=== PATIENT | female | born 1975 | race African-American/Black ===

== ENCOUNTER 2017-11-14 12:35 | Emergency (ER) | payer SELFPAY ==
--- NOTE | 2017-11-14 12:40 | ED Physician Documentation ---
General Adult - HISTORIAN Historian: patient - HPI Stated Complaint: Dizziness since this am Chief Complaint: Dizziness Onset: hours (6) Timing: still present Severity: mild Further Comments: yes (she reports over the last few days she has had some sinus and allergy congestion (she has taken several different OTC Meds over the last few days) and she notes some dysuria. 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 Denies any N/ V. She does report more stools than normal and they are becoming more soft. 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 She denies fever. No blood in urine. No recent head injury . No chest pain.) Last known Well Code/Unknown Code: Unknown - ROS CONST: recent illness (allergy and sinus ) EYES/ENT: nasal drainage, nasal congestion. denies: problems with vision CVS/RESP: denies: chest pain, shortness of breath, cough (productive - dark color phglem ) GI/: problems urinating (burning with urination ), diarrhea (not diarrhea but more frequent and more loose than usual ). denies: vomiting, nausea MS/SKIN/LYMPH: none NEURO/PSYCH: dizziness. denies: headache, fainting, difficulty walking, difficulty with speech - PAST HX Past History: other Surgeries/Procedures: other Immunizations: UTD Allergies/Adverse Reactions: Allergies Allergy/AdvReac Type Severity Reaction Status Date / Time No Known Allergies Allergy Verified 11/14/17 13:22 Home Medications: Ambulatory Orders Medication Instructions Recorded NK [NK] 11/14/17 - SOCIAL HX Smoking History: cigarettes Alcohol Use: none Drug Use: none - FAMILY HX Family History: No - REVIEWED ASSESSMENTS Nursing Assessment Reviewed: Yes Vitals Reviewed: Yes Progress - Progress Progress: 1358: results discussed with patient as well as plan to finish fluids and get started on meds for UTI. She is agreeable DG ED Results Lab/Radiology - Radiology Radiology Impressions: Examination: CT head without contrast History: PT STATES SUDDEN ONSET OF DIZZINESS TODAY (Hx) Comparison exam: None available Technique: Noncontrast head CT protocol. Findings: Ventricles and sulci are appropriate for patient age. Cerebrocerebellar parenchyma demonstrates normal attenuation. No evidence for parenchymal hemorrhage. No evidence for mass or mass effect. No midline shift. No extra axial fluid collections. Partial visualization of the paranasal sinuses , mastoid air cells, orbits, skull and scalp without gross irregularity. Falx calcifications. Impression: No acute parenchymal process. No hemorrhage. Electronically signed on Nov 14, 2017 2:06:38 PM CDT by: Jacob Maldonado Examination: PA and lateral chest. History: Evaluate lung napier. PT STATES PRODUCTIVE COUGH X3 WEEKS FOLLOWED WITH CHEST PAIN. NO KNOWN HEART OR LUNG CONDITIONS. SMOKER (Hx) Comparison exam: None provided. Findings: PA lateral chest demonstrate a normal cardiac and mediastinal silhouette. No focal infiltrate. No blunting of the costophrenic margins. Osseous structures are appropriate for age. Impression: No acute pulmonary process. Electronically signed on Nov 14, 2017 2:07:25 PM CDT by: Jacob Maldonado General Adult Physical Exam - PHYSICAL EXAM GENERAL APPEARANCE: mild distress (crying due to fear per her report) EENT: eye inspection normal, pharynx normal, CARLENE, pharyngeal erythema (right ear ), abnormal TM NECK: normal inspection RESPIRATORY: no resp distress, chest non-tender, breath sounds normal CVS: reg rate & rhythm, heart sounds normal, equal pulses, no murmur ABDOMEN: soft, normal bowel sounds, no distension, non-tender SKIN: warm/dry, normal color EXTREMITIES: non-tender, normal range of motion, no evidence of injury, no edema NEURO: oriented X3, CN's nml as tested, motor nml, sensation nml, mood/affect nml, cognition normal Discharge Clincal Impression: UTI (urinary tract infection) Qualifiers: Urinary tract infection type: site unspecified Hematuria presence: without hematuria Qualified Code(s): N39.0 - Urinary tract infection, site not specified Referrals: Primary Doctor,No [REFERRING] - 2 Days Additional Instructions: 1. macrobid 100 mg take 1 by mouth twice per day x 10 days 2. Pyridium 100 mg take 1 by mouth three times a day x 3 days 3. Increase fluids - water 4. Frequent urination 5. Urinate after sex 6. Tylenol or Ibuprofen as needed for pain 7. See PCP in 10 days for follow up on urine 8. Return to ER for any concerns Condition: Stable Disposition: 01 HOME, SELF-CARE Decision to Admit: NO Date of Decison to Admit: 11/14/17 Decision Time: 15:30
[2017-11-14] MEDS ORDERED: 0.9 % SODIUM CHLORIDE 1,000 ML IV ONE (13:15)
[2017-11-14 13:22] LABS: BASOPHILS % 0.6 (0.0-1.5); MEAN CORPUSCULAR VOLUME 78.5 fl (80.0-100.0); NEUTROPHILS # 3.8 # k/uL (1.4-7.7)
[2017-11-14] MEDS ORDERED: 0.9 % SODIUM CHLORIDE 1,000 ML IV SCH (13:30)
[2017-11-14 13:31] LABS: CANNABINOIDS NON NEGATIVE ng/mL (< 50); METHYLENEDIOXYMETHAMPHETAMINE NEGATIVE ng/mL (<500)
[2017-11-14 13:42] LABS: eGFR (African) > 60; eGFR (Non-African) > 60
[2017-11-14 13:50] LABS: AMORPHOUS SEDIMENT,UR MODERATE (NEGATIVE); APPEARANCE,URINE SLIGHTLY CLOUDY (CLEAR); COLOR,URINE YELLOW (YELLOW); OCCULT BLOOD,URINE 2+ (NEGATIVE)
[2017-11-14 15:09] VITALS: BP 116/69
--- NOTE | 2017-11-14 17:18 | Diagnostic Imaging Report ---
[facility] [id number] [facility] [address] [place], [place]. [address] Report Submission Date: Nov 14, 2017 2:07:25 PM CDT Patient Study Name: ALAN HUTCHISON Date: Nov 14, 2017 1:31:39 PM CDT Modality Type: DX Gender: F Description: CHEST : 75 Institution: [facility] Physician: RADHA SETH Examination: PA and lateral chest. History: Evaluate lung napier. PT STATES PRODUCTIVE COUGH X3 WEEKS FOLLOWED WITH CHEST PAIN. NO KNOWN HEART OR LUNG CONDITIONS. SMOKER (Hx) Comparison exam: None provided. Findings: PA lateral chest demonstrate a normal cardiac and mediastinal silhouette. No focal infiltrate. No blunting of the costophrenic margins. Osseous structures are appropriate for age. Impression: No acute pulmonary process. Electronically signed on Nov 14, 2017 2:07:25 PM CDT by: Jacob HILLS
--- NOTE | 2017-11-14 17:19 | Diagnostic Imaging Report ---
[facility] [id number] [facility] [address] [place], [place]. [address] Report Submission Date: Nov 14, 2017 2:06:38 PM CDT Patient Study Name: ALAN HUTCHISON Date: Nov 14, 2017 1:26:56 PM CDT Modality Type: CT\SR Gender: F Description: CT BRAIN W/O CONTRAST : 75 Institution: [facility] Physician: RADHA SETH Examination: CT head without contrast History: PT STATES SUDDEN ONSET OF DIZZINESS TODAY (Hx) Comparison exam: None available Technique: Noncontrast head CT protocol. Findings: Ventricles and sulci are appropriate for patient age. Cerebrocerebellar parenchyma demonstrates normal attenuation. No evidence for parenchymal hemorrhage. No evidence for mass or mass effect. No midline shift. No extra axial fluid collections. Partial visualization of the paranasal sinuses , mastoid air cells, orbits, skull and scalp without gross irregularity. Falx calcifications. Impression: No acute parenchymal process. No hemorrhage. Electronically signed on Nov 14, 2017 2:06:38 PM CDT by: Jacob HILLS
== END 2017-11-14 15:07 | disposition home or self-care (01) ==
LOC: ED 12:35
DX: N39.0 Urinary tract infection, site not specified (principal)
CPT/HCPCS: 70450; 71046; 80053; 80320; 80377; 81002; 84484; 85025; 87086; 93005; J7030; 87186; 96365; 96366; 99284; G0480; G0481; S1016